=== PATIENT | female | born 1970 | race Caucasian/White ===

== ENCOUNTER 2018-10-26 07:59 | Day surgery (SDC) | payer BC ==
[2018-10-20 17:10] LABS: BASOPHIL % 0.3 % (0-2); PLATELET COUNT 298 x10^3mcL (130-400)
[2018-10-20 17:13] LABS: ALBUMIN 3.8 g/dL (3.4-5.0); ALKALINE PHOSPHATASE 160 U/L (46-116); ALT/SGPT 82 U/L (14-59); AST/SGOT 36 U/L (15-37); BILIRUBIN TOTAL 0.16 mg/dL (0.20-1.00); CALCIUM 8.7 mg/dL (8.5-10.1); CARBON DIOXIDE 27.6 mmol/L (21-32); CHLORIDE SERUM 101 mmol/L (98-107); CREATININE SERUM 0.6 mg/dL (0.6-1.0); GFR1 > 60 mL/min; GLUCOSE SERUM 91 mg/dL (74-106); POTASSIUM SERUM 3.9 mmol/L (3.5-5.1); SODIUM SERUM 136 mmol/L (136-145)
[2018-10-20 17:31] LABS: TOTAL PROTEIN, SERUM 8.4 g/dL (6.4-8.2)
[~2018-10-26] VITALS: Ht 162.6 cm; Wt 96.6 kg
[2018-10-26 08:11] VITALS: BP 135/85
[2018-10-26 16:10] VITALS: BP 131/80
== END 2018-10-26 16:05 | disposition home or self-care (01) ==
LOC: MA 07:59
PROVIDERS: Surgery
PROC: 0HBU0ZZ Excision of Left Breast, Open Approach (ICD-10-PCS; principal; 2018-10-26 12:00)
DX: D24.2 Benign neoplasm of left breast (principal); D64.9 Anemia, unspecified
CPT/HCPCS: 85060; 88344; J2001; J2250; J2704; J3010; J3490; J7120